=== PATIENT | female | born 1970 | race Caucasian/White ===

== ENCOUNTER → 2018-06-15 | Outpatient (CLI) | payer MEDICARE ==
[~2018-06-15] MED LIST: LIOT5TAB3 PO; TRAZ-137 PO; levothyroxine PO
== END | disposition home or self-care (01) ==
LOC: CFH 14:11
PROVIDERS: ATTEND Nurse Practitioner Family
DX: Z12.31 Encounter for screening mammogram for malignant neoplasm of breast (principal); E04.1 Nontoxic single thyroid nodule; E03.9 Hypothyroidism, unspecified; R94.31 Abnormal electrocardiogram [ECG] [EKG]; Z82.49 Family history of ischemic heart disease and other diseases of the circulatory system
CPT/HCPCS: 76536; 77063; 93306; 77067

== ENCOUNTER → 2018-06-24 | Outpatient (CLI) | payer MEDICARE ==
[~2018-06-24] MED LIST changes: +LIDOCAINE-MPF 1%, 5ML ONE
== END | disposition home or self-care (01) ==
LOC: RAD 12:55
PROVIDERS: ATTEND Nurse Practitioner Family
DX: E04.1 Nontoxic single thyroid nodule (principal)
CPT/HCPCS: 10005; 88172; 88173

== ENCOUNTER → 2018-08-24 | Outpatient (CLI) | payer MEDICARE ==
[~2018-08-24] MED LIST changes: -LIDOCAINE-MPF 1%, 5ML ONE; +REGADENOSON 0.4 MG/5 ML SYRINGE ONE
== END | disposition home or self-care (01) ==
LOC: CFH 12:44
PROVIDERS: ATTEND Internal Medicine Cardiovascular Disease
DX: I25.9 Chronic ischemic heart disease, unspecified (principal)
CPT/HCPCS: 78452; 93017; A9502; J2785

== ENCOUNTER 2018-09-08 10:27 | Day surgery (SDC) | payer MEDICARE ==
[~2018-09-08 10:27] MED LIST changes: -REGADENOSON 0.4 MG/5 ML SYRINGE ONE
[2018-09-08] MEDS ORDERED: SODIUM CHLORIDE 0.9% 1,000 ML IV SCH (11:00)
[2018-09-08] MEDS ORDERED: LISI-167 PO (11:58)
[2018-09-08] MEDS ORDERED: AMIT25TA PO (11:58)
[2018-09-08] MEDS ORDERED: KETO60VI23 IM (11:58)
[2018-09-08] MEDS ORDERED: FLUO40CA2 PO (11:58)
[2018-09-08] MEDS ORDERED: CLON0.5T20 PO (11:58)
[2018-09-08] MEDS ORDERED: DEXA10VI7 SQ (11:58)
[2018-09-08] MEDS ORDERED: GABA300C10 PO (11:58)
[2018-09-08 12:13] LABS: BASOPHILS # (AUTO) 0.01 x10^3/uL (0-0.1); BASOPHILS % (AUTO) 0 % (0-1); EOSINOPHILS % (AUTO) 1 % (1-7); LYMPHOCYTES # (AUTO) 1.04 x10^3/uL (1-3.4); LYMPHOCYTES % (AUTO) 6 % (22-44); MD NO; MEAN CORPUSCULAR HEMOGLOBIN 26.2 pg (27.0-34.8); MEAN CORPUSCULAR HGB CONC 32.5 g/dL (32.4-35.8); MEAN CORPUSCULAR VOLUME 80.5 fL (80-100); MEAN PLATELET VOLUME 8.4 fL (7.4-10.4); MONOCYTES % (AUTO) 4 % (2-9); NEUTROPHILS # (AUTO) 14.34 x10^3/uL (1.8-6.8); NEUTROPHILS % (AUTO) 89 % (42-75); PLATELET COUNT 278 x10^3/uL (130-400); RED BLOOD COUNT 5.31 x10^6/uL (3.82-5.3); RED CELL DISTRIBUTION WIDTH 20.9 % (9.6-15.2)
[2018-09-08 12:17] LABS: ANION GAP 5 mmol/L (5-15); CALCIUM 8.9 mg/dL (8.5-10.1); CHLORIDE 105 mmol/L (98-107)
[2018-09-08] MEDS ORDERED: PLEASE ENTER HEIGHT AND WEIGHT MC SCH (12:56)
[2018-09-08] MEDS ORDERED: LIDOCAINE 2%, 20ML ONE (13:21)
[2018-09-08] MEDS ORDERED: FENTANYL PF 100 MCG/2ML ONE ×2 (13:21→13:43)
[2018-09-08] MEDS ORDERED: MIDAZOLAM 1 MG/ML, 5ML ONE ×2 (13:21→13:43)
[2018-09-08] MEDS ORDERED: DIPHENHYDRAMINE 50 MG/ML, 1ML ONE (13:21)
[2018-09-08] MEDS ORDERED: TICAGRELOR 90 MG TABLET ONE (13:21)
[2018-09-08] MEDS ORDERED: BIVALIRUDIN 250 MG ONE (13:21)
[2018-09-08] MEDS ORDERED: VERAPAMIL 2.5 MG/ML, 2ML ONE (13:21)
[2018-09-08] MEDS ORDERED: HEPARIN 1,000 UNITS/ML, 10ML ONE (13:21)
[2018-09-08] MEDS ORDERED: NITROGLYCERIN 5 MG/ML, 10ML ONE (13:28)
== END 2018-09-08 15:54 | disposition home or self-care (01) ==
LOC: CACL 10:27
PROVIDERS: ATTEND Internal Medicine Cardiovascular Disease
DX: R07.89 Other chest pain (principal); E78.5 Hyperlipidemia, unspecified; E78.1 Pure hyperglyceridemia; E03.9 Hypothyroidism, unspecified; Z88.8 Allergy status to other drugs, medicaments and biological substances; I10 Essential (primary) hypertension
CPT/HCPCS: 36415; 80048; 85025; 93458; 99156; C1769; C1894; J1200; J1644; J2250; J3010; Q9967; J0583

== ENCOUNTER 2018-10-11 16:23 | Emergency (ER) | payer MEDICARE ==
[~2018-10-11] VITALS: Ht 175.3 cm; Wt 132.0 kg
[2018-10-11 16:31] VITALS: BP 140/70
== END 2018-10-11 17:42 | disposition home or self-care (01) ==
LOC: ED 17:14
DX: L03.116 Cellulitis of left lower limb (principal); I10 Essential (primary) hypertension
CPT/HCPCS: 99283